=== PATIENT | male | born 1955 | race Caucasian/White ===

== ENCOUNTER → 2018-09-21 10:24 | Outpatient (CLI) | payer OTHER, SELFPAY ==
--- NOTE | 2018-09-21 | DI.NM.S_ITS ---
PROCEDURE: NM JOSE PERF SPECT REST & STR Rest and exercise myocardial perfusion SPECT with gated imaging and ejection fraction RADIOPHARMACEUTICAL: 8.6 mCi Tc-99m sestamibi IV at rest and 25.7 mCi Tc-99m sestamibi IV at peak exercise. A [id number] was performed. INDICATIONS: DYSPNEA ON EXERTION TECHNIQUE: Radiopharmaceutical was injected at peak stress test, and also at rest. SPECT images were obtained. SPECT myocardial perfusion images were displayed in short axis, horizontal long axis, and vertical long axis views. Gated images were reviewed using [employer] SPINE software. COMPARISON: None. CARDIAC STRESS: A standard Mikey treadmill exercise tolerance test was performed by the patient under the supervision of an attending staff. The patient exercised for 5 minutes and 8 seconds; functional aerobic impairment (CARMEN) is -20 %. Hemodynamic data: There is normal blood pressure and heart rate response to exercise stress. Patient achieved 94% of maximum predicted heart rate at peak exercise. Symptoms: Patient denied chest pain during exercise. EKG: No diagnostic EKG changes of ischemia; no ectopy. FINDINGS: Raw data: There is good myocardial labeling by radiotracer. No significant motion artifacts. Mrgh-gt-vxsjp ratio is 0.39 (normal is less than 0.38 for sestamibi tracer, and less than 0.50 for thallium tracer). Left ventricle function: Gated images demonstrate normal left ventricle wall thickening. No segmental wall motion abnormality. No transient ischemic dilation; TID is 0.89 (normal less than 1.3). The left ventricle resting end-diastolic volume is 96 mL. Left ventricle stress ejection fraction is 65% ; normal values are above 45%. Myocardial perfusion: There is normal distribution of activity in the left and right ventricular myocardium. No fixed or reversible perfusion defects. IMPRESSION: Normal exercise myocardial perfusion study. Good exercise capacity. Low risk study. Dictated by: Gio Randhawa M.D. on 09/21/2018 at 18:18 Approved by: Goi Randhawa M.D. on 09/21/2018 at 18:22
--- NOTE | 2018-09-21 14:48 | PM.TREADMILL ---
Cardiac Stress Test Report Referral & Results Date Patient Seen: 09/21/18 Requesting provider: James Crockett Indication: Dyspnea on exertion Rest ECG: Unremarkable Procedure Note: Today following both written and verbal informed consent the patient was exercised according to a standard Mikey protocol patient went for a total of 6 minutes 10 seconds achieving a maximum heart rate of 149 maximum systolic blood pressure of 186. This is approximately 7.0 METS. Exercise was terminated at this point because of patient unable to continue, and targets are met. Patient was also given Cardiolite through a previously started Hep-Lock IV by the diagnostic imaging staff approximately 1 minute prior to the cessation of exercise. No ST-T segment changes Normal heart rate and blood pressure response to exercise Functional aerobic impairment rates about 20% on the sedentary scale Impression: No ischemia by usual ECG criteria. Please see perfusion imaging report as well Somewhat limited exercise capacity as above Please note: Actual ECG tracings can be found in the PACS system.
== END ==
LOC: RAD 10:29
PROVIDERS: Visit Provider Internal Medicine Cardiovascular Disease
DX: R06.09 Other forms of dyspnea (principal)
CPT/HCPCS: 78452; 93016; 93017; 93018; A9502